=== PATIENT | male | born 1945 | race African-American/Black ===

== ENCOUNTER 2016-07-16 07:10 | Day surgery (SDC) | payer BC, MEDICARE ==
--- NOTE | 2016-07-10 12:43 | HISTORY AND PHYSICAL E ---
History and Physical NAME: ROSALINA PEREZ : 1945 AGE: 71Y ADMITTED: 07/16/2016 ROOM: REFERRING PHYSICIAN: Lucía Kim M.D. HISTORY: The patient presented for colon exam. History of polyps. I saw him in 2005 when he did have colonoscopy showing sigmoid polyp resected. This was adenoma polyp. Another colonoscopy was done in 2012. The patient has a history of polyps. REVIEW OF SYSTEMS: CARDIAC: Hypertension. History of mild SD. ENDOCRINE: Negative. GASTROINTESTINAL: Polyp. ONCOLOGY/HEMATOLOGY: Negative. NEUROLOGIC: Negative. FAMILY HISTORY: Father with emphysema at age 80. Mom in her 80s as well. PHYSICAL EXAMINATION: VITAL SIGNS: Blood pressure 140/90, pulse 80, respirations 20, temp 98. HEAD, EYES, EARS, NOSE AND THROAT: Normal. NECK: Neck is supple. ABDOMEN: Soft. NEUROLOGICAL: Exam negative. CONCLUSIONS: History of sessile polyps. PLAN: Colonoscopy. MEDICATIONS: 1. Crestor. 2. Plavix. 3. Aspirin. ALLERGIES: PENICILLIN. DICTATING PHYSICIAN: KARINA RODRIGUEZ M.D. 1221M [id number] PHY#: [id number] ID: [id number] JOB#: [id number] ACCT: [id number] cc:LUCÍA KIM M.D., MAHMOUD M.D. >
[2016-07-16] MEDS ORDERED: NALOXONE HCL INJ/PF 0.4 MG/1 ML SDV ONE (07:38)
[2016-07-16] MEDS ORDERED: LIDOCAINE 2% JELLY 30 ML TUBE ONE (07:38)
[2016-07-16] MEDS ORDERED: ONDANSETRON HCL INJ/PF 4 MG/2 ML SDV ONE (07:38)
[2016-07-16] MEDS ORDERED: GLYCOPYRROLATE INJ 0.4 MG/2 ML VIAL ONE (07:38)
[2016-07-16] MEDS ORDERED: GLUCAGON,HUMAN RECOMB 1 MG INJ ONE (07:39)
[2016-07-16] MEDS ORDERED: EPINEPHRINE INJ 1 MG/10 ML DISP.SYRIN ONE (07:39)
[2016-07-16] MEDS ORDERED: FLUMAZENIL INJ 0.5 MG/5 ML VIAL IV ONE (07:39)
[2016-07-16] MEDS: MIDAZOLAM 2 MG/2 ML INJ ONE ×2 (08:15→08:21)
[2016-07-16] MEDS: FENTANYL CITRATE INJ/PF 100 MCG/2 ML AMPUL ONE ×3 (08:19→08:30)
[2016-07-16 09:51] VITALS: BP 138/74
[2016-07-16 10:03] LABS: ABSOLUTE EOSINOPHILS # (AUTO) 0.2 10^3/uL (0.0-0.6); ABSOLUTE LYMPHOCYTES (AUTO) 1.6 10^3/uL (0.5-4.7); ABSOLUTE MONOCYTES (AUTO) 0.8 10^3/uL (0.1-1.4); ABSOLUTE NEUT (AUTO) 8.3 10^3/uL (1.7-8.2); BASOPHILS % (AUTO) 0.2 % (0-2); EOSINOPHILS % (AUTO) 1.7 % (0-6); HEMATOCRIT 40.5 % (37.9-51.0); HEMOGLOBIN 13.6 g/dL (13.5-17.0); HGB HCT DIFFERENCE 0.3; LYMPHOCYTES % (AUTO) 14.5 % (13-45); MEAN CORPUSCULAR HEMOGLOBIN 28.2 pg (27.0-33.4); MEAN CORPUSCULAR HGB CONC 33.6 g/dL (32.0-36.0); MEAN CORPUSCULAR VOLUME 84 fl (80-97); RED BLOOD COUNT 4.83 10^6/uL (4.35-5.55); RED CELL DISTRIBUTION WIDTH 14.1 % (11.5-14.0); SEGMENTED NEUTROPHILS % (AUTO) 76.6 % (42-78); WHITE BLOOD COUNT 10.8 10^3/uL (4.0-10.5)
[2016-07-16 10:23] LABS: ALANINE AMINOTRANSFERASE 35 U/L (21-72); ALBUMIN 4.1 g/dL (3.5-5.0); ALKALINE PHOSPHATASE 105 U/L (38-126); ANION GAP 12 (5-19); ASPARTATE AMINO TRANSFERASE 38 U/L (17-59); BILIRUBIN,DIRECT 0.3 mg/dL (0.0-0.4); BILIRUBIN,TOTAL 0.6 mg/dL (0.2-1.3); BLOOD UREA NITROGEN 7 mg/dL (7-20); CALCIUM 9.5 mg/dL (8.4-10.2); CARBON DIOXIDE 27 mmol/L (22-30); CHLORIDE 100 mmol/L (98-107); CREATININE RESULT 0.63 mg/dL (0.52-1.25); GLUCOSE 215 mg/dL (75-110); POTASSIUM 3.7 mmol/L (3.6-5.0); SODIUM 139.4 mmol/L (137-145); TOTAL PROTEIN 7.5 g/dL (6.3-8.2)
--- NOTE | 2016-07-16 10:27 | DISCHARGE SUMMARY E ---
Discharge Summary NAME: ROSALINA PEREZ : 1945 AGE: 71Y ADMITTED: 07/16/2016 DISCHARGED: 07/16/2016 PROCEDURE: 1. Colonoscopy. 2. Polypectomy. HISTORY OF PRESENT ILLNESS: Patient is 71 years old. He has history of polyps. Underwent colon resection today showing sessile polyp in mid transverse colon, resected but the polyp was so sessile, possibility of tissue left is a consideration. Patient needs followup colonoscopy in 2 months pending lab results and pending biopsy. PLAN: Soft diet tomorrow, full liquid today. Hold aspirin and nonsteroidal 5 days. DICTATING PHYSICIAN: KARINA RODRIGUEZ M.D. [id number] [id number] Y#: [id number] ID: [id number] JOB#: [id number] ACCT: [id number] cc:LUCÍA JOSÉ M.D., MAHMOUD M.D. >
--- NOTE | 2016-07-16 10:29 | OPERATIVE REPORT E ---
Operative Report NAME: ROSALINA PEREZ : 1945 AGE: 71Y DATE OF SURGERY: 07/16/2016 ROOM: PREOPERATIVE DIAGNOSES: 1. Colon screening. 2. History of polyps. POSTOPERATIVE DIAGNOSES: 1. Sigmoid descending colon diverticulosis. 2. A sessile 2-3 cm size polyp in the midtransverse colon, resected by piecemealing. The polyp most likely resected, but the sides of the polyp shows some tissue. Patient needs followup colonoscopy in 6 weeks for further evaluation. PROCEDURE: Colonoscopy. SURGEON: KARINA RODRIGUEZ M.D. ANESTHESIA: Versed 3, fentanyl 125. TISSUE REMOVED OR ALTERED: Snare polypectomy. PROCEDURE: Rectal exam normal. Sigmoid descending colon diverticulosis. Transverse colon shows sessile polyp, 3 cm, resected by applying snare piecemealing. The polyp most likely completely resected, but the sides of it shows some irregular tissue, so followup colonoscopy in 2 months is indicated. Cecum normal. Ascending colon normal. FINDINGS: Transverse colon sessile polyp resected. Sigmoid descending colon diverticulosis. A sessile polyp resected, but it was right in the wall and we are going to obtain baseline CEA, CBC, and consider followup colonoscopy in 2 months. PLAN: 1. Hold Plavix and aspirin 5 days. 2. Full liquid diet today. Soft residue tomorrow. 3. Awaiting biopsy results. DICTATING PHYSICIAN: KARINA RODRIGUEZ M.D. [id number] [id number] PHY#: [id number] ID: [id number] JOB#: [id number] ACCT: [id number] cc:LUCÍA JOSÉ M.D., MAHMOUD M.D. >
[2016-07-16 10:58] LABS: CARCINOEMBRYONIC ANTIGEN 1.7 ng/mL (<3.0)
== END 2016-07-16 09:58 | disposition home or self-care (01) ==
LOC: END 07:10
PROVIDERS: ATTEND Specialist
PROC: 0DBL8ZX Excision of Transverse Colon, Via Natural or Artificial Opening Endoscopic, Diagnostic (ICD-10-PCS; principal; 2016-07-16 08:00)
DX: Z12.11 Encounter for screening for malignant neoplasm of colon (principal); D12.3 Benign neoplasm of transverse colon; K57.30 Diverticulosis of large intestine without perforation or abscess without bleeding; I10 Essential (primary) hypertension; Z79.02 Long term (current) use of antithrombotics/antiplatelets; Z79.82 Long term (current) use of aspirin; Z79.899 Other long term (current) drug therapy; Z88.0 Allergy status to penicillin; I25.2 Old myocardial infarction
CPT/HCPCS: 45385; 36415; 82378; 85025; 80053; 88305 ×2; J2250; J3010; J1610; J2405; 45380; J0171; J2310; J3490

== ENCOUNTER 2016-12-10 07:20 | Day surgery (SDC) | payer BC, MEDICARE ==
--- NOTE | 2016-12-04 12:28 | HISTORY AND PHYSICAL E ---
History and Physical NAME: ROSALINA PEREZ : 1945 AGE: 71Y ADMITTED: 12/10/2016 ROOM: CHIEF COMPLAINT: Patient for colonoscopy. HISTORY OF PRESENT ILLNESS: The patient is seen by Dr. Boyd. The patient presented back in the year 2005. He did have cardiac catheterization. Colonoscopy done in 2012, there were the polyps: Two polyps were large to be resected. These polyps were adenoma, polyps resected on the . Last polyp resected on 2016. Colonoscopy in 2017 shows the following: Sessile polyp in the transverse colon resected, and the polyp was thought to be sessile but with tissue left over, so consideration is patient is for followup regarding large sessile polyp scheduled for colonoscopy to be done on 12/10/2016. The patient had a large polyp resected in the transverse colon. The patient is being admitted for further evaluation. PAST MEDICAL HISTORY: 1. Mild AK. 2. High cholesterol. 3. History of polyps. 4. Hypertension. MEDICATIONS: 1. Aspirin. 2. Lopressor. 3. Viagra. 4. Omeprazole. 5. Hydralazine. 6. Crestor. 7. Plavix. ALLERGIES: PENICILLIN. SOCIAL HISTORY: The patient drinks occasional beer, , one child. PHYSICAL EXAMINATION: VITAL SIGNS: Blood pressure 140/90, pulse 80, respirations 20, temperature is 98. HEAD, EYES, EARS, NOSE, THROAT: Normal. ABDOMEN: Soft. NEUROLOGIC: Negative. PLAN: Colonoscopy scheduled 12/10/2016. DICTATING PHYSICIAN: KARINA RODRIGUEZ M.D. 1284M 1536 Y#: [id number] ID: [id number] JOB#: [id number] ACCT: [id number] cc:LUCÍA JOSÉ M.D., MAHMOUD M.D. >
--- NOTE | 2016-12-04 12:30 | HISTORY AND PHYSICAL E ---
History and Physical NAME: ROSALINA PEREZ : 1945 AGE: 71Y ADMITTED: 12/10/2016 ROOM: ADDENDUM: Patient is admitted for colonoscopy. His diagnosis is colon screening, history of colon polyp. DICTATING PHYSICIAN: KARINA RODRIGUEZ M.D. 1209M 1600 PHY#: [id number] ID: [id number] JOB#: [id number] ACCT: [id number] cc:KARINA RODRIGUEZ M.D. >
[2016-12-10] MEDS ORDERED: ONDANSETRON HCL INJ/PF 4 MG/2 ML SDV ONE (07:30)
[2016-12-10] MEDS ORDERED: GLYCOPYRROLATE INJ 0.4 MG/2 ML VIAL ONE (07:30)
[2016-12-10] MEDS ORDERED: LIDOCAINE 2% JELLY 30 ML TUBE ONE (07:30)
[2016-12-10] MEDS ORDERED: NALOXONE HCL INJ/PF 0.4 MG/1 ML SDV ONE (07:30)
[2016-12-10] MEDS ORDERED: EPINEPHRINE INJ 1 MG/10 ML DISP.SYRIN ONE (07:31)
[2016-12-10] MEDS ORDERED: FENTANYL CITRATE INJ/PF 100 MCG/2 ML AMPUL ONE (07:31)
[2016-12-10] MEDS ORDERED: FLUMAZENIL INJ 0.5 MG/5 ML VIAL ONE (07:31)
[2016-12-10] MEDS ORDERED: GLUCAGON,HUMAN RECOMB 1 MG INJ ONE (07:31)
[2016-12-10] MEDS: MIDAZOLAM 2 MG/2 ML INJ ONE ×2 (08:16→08:22)
[2016-12-10 09:55] VITALS: BP 102/77
[2016-12-10 10:26] LABS: ABSOLUTE EOSINOPHILS # (AUTO) 0.2 10^3/uL (0.0-0.6); ABSOLUTE LYMPHOCYTES (AUTO) 1.5 10^3/uL (0.5-4.7); ABSOLUTE MONOCYTES (AUTO) 0.8 10^3/uL (0.1-1.4); ABSOLUTE NEUT (AUTO) 9.7 10^3/uL (1.7-8.2); BASOPHILS % (AUTO) 0.2 % (0-2); EOSINOPHILS % (AUTO) 1.7 % (0-6); HEMATOCRIT 40.9 % (37.9-51.0); HEMOGLOBIN 13.5 g/dL (13.5-17.0); HGB HCT DIFFERENCE -0.4; LYMPHOCYTES % (AUTO) 12.4 % (13-45); MEAN CORPUSCULAR HEMOGLOBIN 28.4 pg (27.0-33.4); MEAN CORPUSCULAR HGB CONC 33.1 g/dL (32.0-36.0); MEAN CORPUSCULAR VOLUME 86 fl (80-97); MONOCYTES % (AUTO) 6.8 % (3-13); RED BLOOD COUNT 4.77 10^6/uL (4.35-5.55); RED CELL DISTRIBUTION WIDTH 14.7 % (11.5-14.0); SEGMENTED NEUTROPHILS % (AUTO) 78.9 % (42-78); WHITE BLOOD COUNT 12.3 10^3/uL (4.0-10.5)
--- NOTE | 2016-12-10 10:56 | OPERATIVE REPORT E ---
Operative Report NAME: ROSALINA PEREZ : 1945 AGE: 71Y DATE OF SURGERY: 12/10/2016 ROOM: PREOPERATIVE DIAGNOSIS: History of polyps. POSTOPERATIVE DIAGNOSIS: Lipoma cecum, ascending, 1/2 cm, benign. No biopsy needed. Ascending colon shows a small 2 mm polyp. Biopsy obtained. Another 3 mm polyp. Biopsy obtained. Transverse colon shows 1-2 mm polyp. Descending colon shows sigmoid diverticulosis. Cecum normal. As mentioned, ascending colon shows small polyps, 2 mm to 3 mm. Biopsy obtained. Transverse colon shows 1-2 mm polyp. Sigmoid descending colon diverticulosis. OPERATION: Colonoscopy. SURGEON: KARINA RODRIGUEZ M.D. DISCHARGE PLAN: Hold Plavix for 3 days. Awaiting biopsy results. Consideration followup colonoscopy in 1 year. Again, very small polyps in the ascending colon. Benign looking. Removed by biopsy. Consideration followup colonoscopy in 1 year. DICTATING PHYSICIAN: KARINA RODRIGUEZ M.D. 1211M 0905 PHY#: [id number] ID: [id number] JOB#: [id number] ACCT: [id number] cc:LUCÍA JOSÉ M.D., MAHMOUD M.D. >
--- NOTE | 2016-12-10 10:56 | DISCHARGE SUMMARY E ---
Discharge Summary NAME: ROSALINA PEREZ : 1945 AGE: 71Y ADMITTED: 12/10/2016 DISCHARGED: 12/10/2016 PROCEDURE: Colonoscopy and biopsy. HISTORY: A 71-year-old male with history of sessile polyps underwent colonoscopy today showing benign-looking polyps in the ascending colon and severe diverticulosis, sigmoid and descending colon. DISCHARGE PLAN: 1. Hold aspirin and Plavix for 3 days. 2. Soft low-residue diet. 3. Awaiting biopsy. 4. Consider follow-up colonoscopy in 1 year pending biopsy results. FINAL DIAGNOSES: 1. Colon polyps, ascending colon, 3 mm and 2 mm. 2. Severe diverticulosis, sigmoid and descending colon. DICTATING PHYSICIAN: KARINA RODRIGUEZ M.D. 1209M 0904 PHY#: [id number] ID: [id number] JOB#: [id number] ACCT: [id number] cc:LUCÍA JOSÉ M.D., MAHMOUD M.D. >
== END 2016-12-10 10:05 | disposition home or self-care (01) ==
LOC: END 07:20
PROVIDERS: ATTEND Specialist
PROC: 0DBK8ZX Excision of Ascending Colon, Via Natural or Artificial Opening Endoscopic, Diagnostic (ICD-10-PCS; 2016-12-10)
PROC: 0DBL8ZX Excision of Transverse Colon, Via Natural or Artificial Opening Endoscopic, Diagnostic (ICD-10-PCS; principal; 2016-12-10 08:00)
DX: Z12.11 Encounter for screening for malignant neoplasm of colon (principal); D12.2 Benign neoplasm of ascending colon; D12.3 Benign neoplasm of transverse colon; K57.30 Diverticulosis of large intestine without perforation or abscess without bleeding; D17.5 Benign lipomatous neoplasm of intra-abdominal organs; E78.00 Pure hypercholesterolemia, unspecified; I10 Essential (primary) hypertension; I25.2 Old myocardial infarction; Z79.82 Long term (current) use of aspirin; Z79.899 Other long term (current) drug therapy; Z79.02 Long term (current) use of antithrombotics/antiplatelets; Z80.0 Family history of malignant neoplasm of digestive organs
CPT/HCPCS: 45380; 36415; 85025; 88305 ×2; J2250; J3010; J1610; J2405; J0171; J2310; J3490

== ENCOUNTER → 2018-10-13 | Outpatient (CLI) | payer BC, MEDICARE ==
--- NOTE | 2018-10-13 16:15 | RADIOLOGY REPORT (SQ) ---
EXAM DESCRIPTION: U/S THYROID/SFT TISS HD NECK COMPLETED DATE/TIME: 10/13/2018 4:01 pm REASON FOR STUDY: M79.9 SOFT TISSUE DISORDER, UNSPECIFIED M79.9 SOFT TISSUE DISORDER, UNSPECIFIED COMPARISON: None. TECHNIQUE: Dynamic and static grayscale images acquired of the localized site of clinical concern an d recorded on PACS. Additional selected color Doppler and spectral images recorded. SITE OF CONCERN: Anterior neck LIMITATIONS: None. FINDINGS: A well-circumscribed hyperechoic 3.9 x 4.3 x 1.6 cm mass in the anterior neck superior to the thyroid gland. By ultrasound examination, it does not appear to be connected to the thyroid glan d. Considerations for this finding includes possible lipoma, as well as other etiologies. IMPRESSION: 1. A well-circumscribed hyperechoic mass superior to the thyroid gland. Considerations for this finding includes lipoma as well as other underlying pathology. Correlation with CT Neck wi th IV contrast suggested. TECHNICAL DOCUMENTATION: JOB ID: [id number] [employer]- All Rights Reserved Reading location - IP/workstation name: [email or web address]
== END ==
LOC: RAD 15:36
PROVIDERS: ATTEND Internal Medicine Geriatric Medicine
DX: M79.9 Soft tissue disorder, unspecified (principal)
CPT/HCPCS: 76536

== ENCOUNTER → 2018-12-14 | Outpatient (CLI) | payer BC, MEDICARE ==
--- NOTE | 2018-12-14 14:20 | RADIOLOGY REPORT (SQ) ---
EXAM DESCRIPTION: CT SOFT TISSUE NECK WITH COMPLETED DATE/TIME: 12/14/2018 8:25 am REASON FOR STUDY: LOCALIZED SWELLING, MASS AND LUMP, NECK (R22.1) R22.1 LOCALIZED SWELLING, MASS AN D LUMP, NECK COMPARISON: None. TECHNIQUE: Post IV contrasted scanning from skull base through lung apices with review of bone, soft tissue and lung windows. Reconstructed coronal and sagittal MPR images reviewed. All images stored on PACS. All CT scanners at this facility use dose modulation, iterative reconstruction, and/or weight based d osing when appropriate to reduce radiation dose to as low as reasonably achievable (ALARA). [facility]: Dose Right [facility]: CareDose [facility]: Dose Right [facility]: Teradose 4D [facility]: [employer] CONTRAST TYPE AND DOSE: contrast/concentration: Isovue 350.00 mg/ml; Total Contrast Delivered: 75.0 ml; Total Saline Delivered: 55.0 ml RENAL FUNCTION: Creatinine 0.8. RADIATION DOSE: . LIMITATIONS: None. FINDINGS: SKULL BASE: Intact. MAJOR SALIVARY GLANDS: No solid or cystic masses. No inflammatory changes. LYMPHADENOPATHY: No adenopathy. MUCOSAL MASSES OR ASYMMETRY: No mucosal masses or asymmetry. LARYNX/CORDS: No abnormal findings. VASCULAR STRUCTURES: The major vessels are patent. LUNG APICES: Clear. BONES: Intact. THYROID: Normal size. No masses. PARANASAL SINUSES: Clear. OTHER: No other significant finding. IMPRESSION: NO SIGNIFICANT FINDING IN THE SOFT TISSUES OF THE NECK. FAT IN THE SUPRACLAVICULAR AREA S BUT NO SOFT TISSUE MASS OR ASYMMETRY. TECHNICAL DOCUMENTATION: JOB ID: [id number] Quality ID # [id number]: Final reports with documentation of one or more dose reduction techniques (e.g., Au tomated exposure control, adjustment of the mA and/or kV according to patient size, use of iterative reconstruction technique) 2010 [employer]- All Rights Reserved Reading location - IP/workstation name: [email or web address]
== END ==
LOC: RAD 07:42
PROVIDERS: ATTEND Internal Medicine Geriatric Medicine
DX: R22.1 Localized swelling, mass and lump, neck (principal)
CPT/HCPCS: 70491; 82565